=== PATIENT | male | born 1995 | race Caucasian/White ===

== ENCOUNTER 2024-05-03 12:56 | Outpatient (AMB) | payer OTHER, MEDICAID, SELFPAY ==
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
[2024-05-03 13:05] VITALS: BP 138/66; PULSE 79; O2SAT 99; BMI 27.1
== END 2024-05-03 13:39 | disposition home or self-care (01) ==
PROVIDERS: PCP Physician Assistant Medical; Visit Provider Nurse Practitioner Family
DX: M79.602 Pain in left arm (principal); M25.512 Pain in left shoulder; S14.3XXS Injury of brachial plexus, sequela; G56.92 Unspecified mononeuropathy of left upper limb
CPT/HCPCS: 99204

== ENCOUNTER → 2024-05-03 12:56 | Outpatient (BNVA) | payer OTHER, MEDICAID, SELFPAY | PROVIDERS: PCP Physician Assistant Medical; Visit Provider Nurse Practitioner Family ==

== ENCOUNTER 2024-05-28 11:47 | Outpatient (REF) | payer MEDICARE, SELFPAY ==
--- NOTE | ~2024-05-28 | XR_ITS ---
EXAMINATION: XR CERVICAL SPINE 3 VIEWS CLINICAL INFORMATION: Injury of brachial plexus, sequela S14.3XXS. COMPARISON: None available. TECHNIQUE: 3 views of the cervical spine were obtained. FINDINGS: There are no prevertebral soft tissue or bony abnormalities demonstrated. No compression fractures or subluxations are identified. Alignment is maintained at the atlanto-axial articulation. The disc spaces are preserved. No endplate changes are seen. The prevertebral soft tissues are normal. Surgical clips in the bilateral supraclavicular regions XR/XR cervical spine 2V IMPRESSION: Unremarkable examination. Electronically signed by: Manish Solano MD 08/03/2024 11:12 AM [facility]
== END 2024-05-28 11:48 | disposition home or self-care (01) ==
LOC: HO.XRAY 11:47
PROVIDERS: PCP Nurse Practitioner Family; Visit Provider Internal Medicine
DX: S14.3XXS Injury of brachial plexus, sequela (principal)
CPT/HCPCS: 72040